=== PATIENT | male | born 1955 | race Hispanic/Latino ===

== ENCOUNTER 2019-02-04 06:44 | Inpatient (IN) | payer OTHER ==
--- NOTE | 2019-02-04 07:01 | Emergency Department Report ---
ED Chest Pain HPI - General Chief Complaint: Chest Pain Stated Complaint: CHEST PAIN Time Seen by Provider: 02/04/19 06:48 Source: patient, EMS Mode of arrival: Stretcher Limitations: No Limitations - History of Present Illness Initial Comments: Mr. Lanza is a 63-year-old male history of tobacco abuse who presents with severe substernal central chest pain in the epigastric region while at work. 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 Pain was initially 8-9/10. [place] like a fist tightening. Radiating to his left arm with. Left arm numbness. EMS observe diaphoresis. He received nitroglycerin, aspirin and 8 mg of morphine due to severe pain. One millimeter of ST elevation noted in the anterior leads according to EMS. His pain is currently 2 out of 10. Mr. Lanza does not have any significant past medical history. He does not have a regular physician. No family history of cardiac disease according to his report. MD Complaint: chest pain -: Sudden, This morning Onset: during rest, during exertion Pain Location: substernal Pain Radiation: LUE Severity: severe Severity scale (0 -10): 9 Quality: tightness Improves With: nitroglycerin, other (aspirin morphine) re: diaphoresis Treatments Prior to Arrival: aspirin, nitroglycerin, other (morphine) - Related Data Allergies Allergy/AdvReac Type Severity Reaction Status Date / Time No Known Allergies Allergy Unverified 02/04/19 07:41 Heart Score - HEART Score History: Highly suspicious EKG: Non-specific Age: > 65 Risk factors: 1-2 risk factors Troponin: < normal limit HEART Score: 6 ED Review of Systems ROS: Stated complaint: CHEST PAIN Other details as noted in HPI Comment: All other systems reviewed and negative Constitutional: denies: fever, malaise Respiratory: denies: cough Cardiovascular: chest pain ED Past Medical Hx - Past Medical History Previous Medical History?: Yes Hx of Cancer: Yes Additional medical history: left chest cancer - Surgical History Past Surgical History?: Yes Additional Surgical History: removal of cancer - Social History Smoking Status: Current Every Day Smoker Substance Use Type: None ED Physical Exam - General Limitations: No Limitations General appearance: alert, in no apparent distress - Head Head exam: Present: atraumatic, normocephalic - Eye Eye exam: Present: normal appearance - ENT ENT exam: Present: mucous membranes moist - Neck Neck exam: Present: normal inspection, full ROM - Respiratory Respiratory exam: Present: normal lung sounds bilaterally. Absent: respiratory distress, wheezes, rales, rhonchi - Cardiovascular Cardiovascular Exam: Present: regular rate, normal rhythm, normal heart sounds. Absent: systolic murmur, diastolic murmur, rubs, gallop - GI/Abdominal GI/Abdominal exam: Present: soft, normal bowel sounds. Absent: distended, tenderness, guarding, rebound - Rectal Rectal exam: Present: deferred - Extremities Exam Extremities exam: Present: normal inspection - Back Exam Back exam: Present: normal inspection - Neurological Exam Neurological exam: Present: alert, oriented X3 - Psychiatric Psychiatric exam: Present: normal affect, normal mood - Skin Skin exam: Present: warm, dry, intact, normal color. Absent: rash ED Course Vital Signs 02/04/19 02/04/19 06:50 07:40 Temperature 98.1 F Pulse Rate 77 71 Respiratory 18 18 Rate Blood Pressure 152/87 Blood Pressure 164/65 [Right] O2 Sat by Pulse 97 100 Oximetry ED Medical Decision Making - Lab Data Result diagrams: 02/04/19 06:58 02/04/19 06:58 Laboratory Results - last 24 hr 02/04/19 02/04/19 06:58 06:58 WBC 13.0 H RBC 5.25 H Hgb 17.5 H Hct 49.9 H MCV 95 H MCH 33 H MCHC 35 H RDW 13.5 Plt Count 228 Lymph % (Auto) 34.6 [place] % (Auto) 8.1 H Eos % (Auto) 1.8 Baso % (Auto) 1.0 Lymph # 4.5 [place] # 1.1 H Eos # 0.2 Baso # 0.1 Seg Neutrophils % 54.5 Seg Neutrophils # 7.1 Sodium 138 Potassium 4.0 Chloride 101.1 Carbon Dioxide 22 Anion Gap 19 BUN 11 Creatinine 1.1 Estimated GFR > 60 BUN/Creatinine Ratio 10 Glucose 234 H Calcium 8.9 Total Bilirubin 0.30 AST 15 ALT 13 Alkaline Phosphatase 108 Troponin T < 0.010 Total Protein 6.9 Albumin 3.8 L Albumin/Globulin Ratio 1.2 - EKG Data 02/04/19 07:06 EKG obtained 648 Normal sinus rhythm rate 75 beats a minute left axis deviation prolonged QT int erval no significant ST elevation nonspecific T wave pattern inferior anterior Q waves abnormal EKG - Radiology Data Radiology results: report reviewed interpreted by me: AP portable chest: Mild pulmonary edema without effusion or other acute finding - Medical Decision Making Mr. Lanza presents with a presentation concerning for acute coronary syndrome. Heart Score 6. He is currently pain free. First troponin is negative. Admitted to the hospital service for further evaluation. Critical care attestation.: If time is entered above; I have spent that time in minutes in the direct care of this critically ill patient, excluding procedure time. ED Disposition Clinical Impression: Acute coronary syndrome Disposition: OP ADMIT IP TO THIS HOSP Is pt being admited?: Yes Does the pt Need Aspirin: No Condition: Stable
--- NOTE | 2019-02-04 07:20 | XRay Report ---
PROCEDURE: XR CHEST 1V AP TECHNIQUE: Chest radiograph single view. HISTORY: dyspnea COMPARISONS: None . FINDINGS: Patient is rotated. No mediastinal shift. Cardiac silhouette is not enlarged for portable technique. Diffuse interstitial prominence. No pneumothorax, effusion, or focal pulmonary opacity identified. N o acute skeletal findings. IMPRESSION: Suggested mild pulmonary edema without effusion or other acute finding. This document is electronically signed by Allan Carrasco MD., February 04 2019 07:17:51 AM ET
[2019-02-04 07:22] LABS: Basophils # (Auto) 0.1 K/mm3 (0.0-0.1); Eosinophils # (Auto) 0.2 K/mm3 (0.0-0.4); Eosinophils % (Auto) 1.8 % (0.0-4.3); Hematocrit 49.9 % (35.5-45.6); Hemoglobin 17.5 gm/dl (11.8-15.2); Lymphocytes # (Auto) 4.5 K/mm3 (1.2-5.4); Lymphocytes % (Auto) 34.6 % (13.4-35.0); Mean Corpuscular HGB Conc 35 % (32-34); Mean Corpuscular Volume 95 fl (84-94); Monocytes # (Auto) 1.1 K/mm3 (0.0-0.8); Monocytes % (Auto) 8.1 % (0.0-7.3); Platelet Count 228 K/mm3 (140-440); Red Blood Count 5.25 M/mm3 (3.65-5.03); Red Cell Distribution Width 13.5 % (13.2-15.2)
[2019-02-04 07:45] LABS: Alanine Aminotransferase 13 units/L (7-56); Albumin 3.8 g/dL (3.9-5); BUN/Creatinine Ratio 10; Blood Urea Nitrogen 11 mg/dL (9-20); Calcium 8.9 mg/dL (8.4-10.2); Hemolysis Index 43
[2019-02-04] MEDS ORDERED: NITRO-BID 2% TP STA (08:20)
[2019-02-04] MEDS ORDERED: MORPHINE IV ONE (08:20)
[2019-02-04] MEDS ORDERED: LOPRESSOR PO ONE (08:20)
[2019-02-04] MEDS ORDERED: TRIDIL DRIP 50MG/250ML 50 MG/250 ML BOTTLE ONE (09:26)
--- NOTE | 2019-02-04 09:26 | History and Physical Report ---
History of Present Illness Date of examination: 02/04/19 Date of admission: 02/04/19 08:17 Chief complaint: chest pain History of present illness: 63yr old male patient with no significant past medical history except for ongoing tobacco use, does not follow any physician not on any medications Presented to the emergency room with the complaints of chest pain which started this morning around 5:00 while getting ready to go to work Chest pain is continuous squeezing to pressure type radiating to left side of the chest and left arm associated with mild shortness of breath and nausea. Upon arrival to the emergency room patient was found to be in hypertensive urgency with peak blood pressure of 181 /109, persistent chest pain , nitroglycerin drip initiated , received bolus of heparin. First set of cardiac enzymes negative EKG no acute ST-T changes, however second EKG findings consistent with ST elevations , cardiology evaluated, anterior STEMI ,code STEMI called and patient was taken for STAT Cardiac Cath Past History Past Medical History: No medical history Past Surgical History: Other (excision of melanoma) Social history: smoking, alcohol abuse Family history: hypertension Medications and Allergies Allergies Allergy/AdvReac Type Severity Reaction Status Date / Time No Known Allergies Allergy Unverified 02/04/19 07:41 Home Medications Medication Instructions Recorded Confirmed Last Taken Type No Known Home Medications [No 02/04/19 02/04/19 Unknown History Reported Home Medications] Active Meds: Active Medications Nitroglycerin/Dextrose (Tridil Drip 50mg/250ml) 50 mg in 250 mls @ 3 mls/hr IV TITR [facility]; Protocol Review of Systems Constitutional: sweats, no weight loss, no weight gain Ears, nose, mouth and throat: no nasal congestion, no nasal discharge Cardiovascular: chest pain, shortness of breath, high blood pressure Respiratory: shortness of breath Gastrointestinal: no abdominal pain, no nausea, no vomiting Genitourinary Male: no dysuria, no flank pain Musculoskeletal: no myalgias, no arthritis Integumentary: no rash, no lesions Neurological: no weakness, no seizures, no syncope Psychiatric: no anxiety, no depression Endocrine: no cold intolerance, no heat intolerance Hematologic/Lymphatic: no easy bruising, no easy bleeding Allergic/Immunologic: no urticaria, no allergic rhinitis Exam - Constitutional Vitals: Temp Pulse Resp BP Pulse Ox 98.1 F 95 H 22 175/108 96 02/04/19 06:50 02/04/19 09:16 02/04/19 09:16 02/04/19 09:16 02/04/19 09:16 General appearance: Present: mild distress - EENT Eyes: Present: PERRL, EOM intact - Neck Neck: Present: supple, normal ROM - Respiratory Respiratory effort: normal Respiratory: bilateral: diminished, negative: rales, rhonchi, wheezing - Cardiovascular Rhythm: regular Heart Sounds: Present: S1 & S2 - Extremities Extremities: no ischemia, No edema - Abdominal General gastrointestinal: Present: soft, non-tender, non-distended, normal bowel sounds - Integumentary Integumentary: Present: clear, warm - Musculoskeletal Musculoskeletal: strength equal bilaterally - Psychiatric Psychiatric: appropriate mood/affect, cooperative - Neurologic Neurologic: CNII-XII intact, moves all extremities Results - Labs CBC & Chem 7: 02/05/19 04:49 02/05/19 04:49 Labs: Abnormal lab results 02/04/19 02/04/19 Range/Units 06:58 06:58 WBC 13.0 H (4.5-11.0) K/mm3 RBC 5.25 H (3.65-5.03) M/mm3 Hgb 17.5 H (11.8-15.2) gm/dl Hct 49.9 H (35.5-45.6) % MCV 95 H (84-94) fl MCH 33 H (28-32) pg MCHC 35 H (32-34) % [place] % (Auto) 8.1 H (0.0-7.3) % [place] # 1.1 H (0.0-0.8) K/mm3 Glucose 234 H (75-100) mg/dL Albumin 3.8 L (3.9-5) g/dL Assessment and Plan --Chest pain; STEMI Aspirin, beta blockers, nitroglycerin drip, Rodriguez inhibitors, statins Serial cardiac enzymes, echocardiogram, EKG as needed Cardiology evaluated the patient, STAT cardiac cath --Hyperglycemia; Accu-Chek sliding scale coverage and ADA diet Check hemoglobin A1c --Ongoing tobacco use; smoking cessation counseling Advised nicotine patch as needed --Obesity; BMI 37.1; advised weight reduction and medically stable --DVT prophylaxis; Lovenox Admit to ICU,Follow cath Closely monitor the patient and adjust management as needed Critical care time 50 minutes
[2019-02-04] MEDS ORDERED: NITROSTAT SL PRN (09:27)
[2019-02-04] MEDS ORDERED: LASIX IV ONE (09:41)
[2019-02-04] MEDS ORDERED: TRIDIL DRIP 50MG/250ML 50 MG/250 ML BOTTLE IV SCH (10:00)
[2019-02-04] MEDS ORDERED: ZESTRIL PO SCH ×2 (10:00→11:41)
[2019-02-04] MEDS ORDERED: COREG PO SCH ×2 (10:00→22:00)
[2019-02-04] MEDS ORDERED: ASPIRIN PO SCH (10:00)
[2019-02-04] MEDS ORDERED: HEPARIN IV NR (10:06)
[2019-02-04] MEDS ORDERED: HEPARIN 10,000 UNITS/10 ML ONE ×2 (10:32→12:00)
[2019-02-04] MEDS ORDERED: HEPARIN/NS 5000 UNIT/500ML(CATH LAB) 1,000 ML IR ONE (10:32)
[2019-02-04] MEDS ORDERED: CALAN ONE (10:33)
[2019-02-04] MEDS ORDERED: NITROGLYCERIN SYRINGE 3 ML ONE (10:33)
[2019-02-04] MEDS ORDERED: ADRENALIN ONE (10:34)
[2019-02-04] MEDS ORDERED: XYLOCAINE CARDIAC IV ONE (10:34)
[2019-02-04] MEDS ORDERED: ATROPINE 0.1% (CARDIAC) ONE (10:34)
[2019-02-04 10:35] LABS: Chol/HDL Ratio 5.51 %
[2019-02-04] MEDS ORDERED: NEO SYNEPHRINE/NS Syringe(OR USE) IV ONE (10:35)
[2019-02-04] MEDS ORDERED: NACL 0.9% 500 ML 500 ML ONE (10:36)
[2019-02-04] MEDS: VERSED ONE ×2 (10:48→10:58)
[2019-02-04] MEDS: SUBLIMAZE ONE ×2 (10:48→10:58)
[2019-02-04] MEDS: XYLOCAINE 2% INFILTRATI ONE ×2 (10:49→10:59)
[2019-02-04] MEDS ORDERED: LASIX ONE (11:05)
[2019-02-04] MEDS ORDERED: PLAVIX ONE (11:18)
[2019-02-04] MEDS ORDERED: ALUM-MAG HYDROX-SIMETH 200-200-20MG/5ML ONE (11:18)
--- NOTE | 2019-02-04 11:57 | Cardiac Catherization Report ---
REFERRING PHYSICIAN: Dr. Manzano, ER physician. INDICATION FOR PROCEDURE: The patient is a 63-year-old gentleman who does not see physicians, smokes, came in with on and off chest pain after 2 negative troponins, was found to have recurrent chest pain, ST elevation on EKG. STEMI protocol initiated, brought to the laborer powerhouse in an urgent fashion, prepped and draped in sterile fashion. Prior to obtaining informed consent, risks, benefits, alternatives discussed at length with the patient. PROCEDURE IN DETAIL: The patient was brought to the laborer powerhouse in an urgent fashion, prepped and draped in sterile fashion. A 6 mL of 2% lidocaine used to anesthetize the right wrist. A standard 6-[place] sheath was used to cannulate the right radial artery using modified Seldinger technique. All exchanges performed to exchange a J-tip guidewire. JL3.5 catheter used to engage the left main. No dampening or vegetations. Cineangiography performed in all projections. JR4 catheter was used to cross the aortic valve. Under fluoroscopic guidance, left ventriculography performed in 30 COOK and 30 [place] projections via hand injections, catheter flushed. Manual pullback performed with continuous pressure monitoring. Catheter used to engage the right coronary. No dampening or ventricularization. Cineangiography performed in all projections. It should be noted the patient is hypertensive crisis on IV nitroglycerin drip, active 10/10 chest pain, hypoxemic on nonrebreather. Pulmonary was called to bedside for close monitoring. He is very uncomfortable and acutely ill. We turned our attention to PCI at this point. DATA: Overall aortic pressure is 160/90, LV pressure is 160, LVP of 35 mmHg. Left ventriculography reveals moderate global left ventricular hypokinesis with anterior hypokinesis, estimated ejection fraction of 35-40%. CORONARY ANATOMY: Right coronary with a chronic total occlusion proximally with well-organized left to right. This is a codominant system. Would recommend medical management. Left main without significant disease, bifurcates left anterior descending and left circumflex. Left circumflex, moderate-sized vessel, courses AV groove, 40-50% proximal left circumflex is identified. 100% occlusion of the LAD proximally angiographic characteristics of atherothrombosis. We turned our attention to PCI at this point, further heparin was given. Abnormal ACT is confirmed. The patient loaded with aspirin. EBU 3.5 guide to engage the left main. No difficulty. We used a King wire to cross the lesion without difficulty, 2.5 x 12 balloon to predilate the lesion. We used two overlapping Xience stents, 3.0 x 26 overlapping 3.0 x 12. We postdilated the overlap. Excellent angiographic result. Intravascular ultrasound was performed reveals a well-apposed and well-expanded stent. Excellent angiographic and ultrasonographic result. No dissection. The stents are well-apposed and well expanded. Proximal ostial LAD and left main without significant disease, ALVARO 3 flow noted now. No complications are identified. CONCLUSIONS: 1. Acute atherothrombotic occlusion of the proximal LAD in the milieu of an anterior ST elevation myocardial infarction. 2. Successful IVUS guided PCI placement of overlapping drug-eluting stents (3.0 x 26, 3.0 x 12 Ne[place]ali) with excellent final angiographic and ultrasonographic results. 3. A 40-50% proximal left circumflex. 4. Chronic total occlusion of a small codominant right coronary. Recommend medical management. 5. Left ventriculography reveals anterior dyskinesis with estimated ejection fraction of 35-40%. 6. No evidence of aortic stenosis. 7. Markedly elevated LVP. 8. Elevated blood pressure. The patient is clinically markedly improved. O2 sats improved. Chest pain is resolved. ACT is confirmed to be normal. Aspirin and Plavix loaded. Standard radial care. We will watch his blood pressure closely. He will be admitted to the ICU. Check echocardiogram, diuresis. Results of procedure explained in length to the patient and family. All questions and concerns were addressed. ADDENDUM I directly supervised administration of mild sedation with fentanyl and Versed from 10:48 a.m. to 11:30 a.m. JOB#: [id number] JOB# [id number] SBM/NTS
--- NOTE | 2019-02-04 13:25 | Consultation ---
History of Present Illness Consult date: 02/04/19 Requesting physician: MIRACLE HILL Consult reason: chest pain History of present illness: The pt is a 63 YO male with a past medical history of tobacco use and melanoma skin CA to left-chest which was removed. Pt does not regularly see doctors. Pt presented with c/o chest pain since 5AM this morning. He was walking around his house getting ready for work when he noted the onset of the chest pain. He describes his chest pain as a constant midsternal squeezing pain. He was driving to work when he noted the pain move into his left chest and he developed some left arm numbness and SOB and thus he decided to seek medical attention. Following arrival, pt noted to have hypertensive urgency, pulmonary edema on CXR, S3 gallop on evaluation, c/o 8/10 chest pain and was initiated on nitro gtt. Initial ECG with NSR and no acute changes, trop negative for AMI x 1 set, however repeat ECG showed NSR with anterior STEMI and thus code STEMI was activated and pt taken to biological lab technician for emergent coronary angiography. Past History Past Medical History: No medical history Past Surgical History: No surgical history Social history: smoking Medications and Allergies Allergies Allergy/AdvReac Type Severity Reaction Status Date / Time No Known Allergies Allergy Unverified 02/04/19 07:41 Home Medications Medication Instructions Recorded Confirmed Last Taken Type No Known Home Medications [No 02/04/19 02/04/19 Unknown History Reported Home Medications] Active Meds: Active Medications Aspirin (Ecotrin) 325 mg PO QDAY [facility] Atorvastatin Calcium (Lipitor) 80 mg PO QHS [facility] Carvedilol (Coreg) 6.25 mg PO BID [facility] Clopidogrel Bisulfate (Plavix) 75 mg PO QDAY [facility] Nitroglycerin/Dextrose (Tridil Drip 50mg/250ml) 50 mg in 250 mls @ 3 mls/hr IV TITR [facility]; Protocol Last Titration: 02/04/19 09:56 Dose: 3 mcg/min, 0.9 mls/hr Documented by: Insulin Human Lispro (Humalog) 0 unit SUB-Q ACHS [facility]; Protocol Lisinopril (Zestril) 10 mg PO QDAY [facility] Nicotine (Habitrol) 14 mg TD QDAY [facility] Nitroglycerin (Nitrostat) 0.4 mg SL .Q5MIN PRN PRN Reason: Chest Pain Review of Systems Constitutional: no weight loss, no weight gain, no fever, no chills, no sweats Ears, nose, mouth and throat: no ear pain, no nose pain, no sinus pressure, no sinus pain Cardiovascular: chest pain, shortness of breath, no orthopnea, no palpitations, no rapid/irregular heart beat, no edema, no syncope, no lightheadedness Respiratory: shortness of breath, wheezing, no cough, no congestion, no pain on inspiration Gastrointestinal: no abdominal pain, no nausea, no vomiting, no diarrhea, no constipation, no change in bowel habits Genitourinary Male: no dysuria, no hematuria, no flank pain, no discharge, no urinary frequency, no urinary hesitancy Musculoskeletal: arm numbness/tingling (LUE), no neck stiffness, no neck pain, no shooting arm pain, no low back pain, no shooting leg pain Integumentary: no rash, no pruritis, no redness, no sores, no wounds Neurological: no head injury, no paralysis, no weakness, no parathesias, no tingling, no seizures, no syncope Psychiatric: no anxiety Endocrine: no cold intolerance, no heat intolerance Hematologic/Lymphatic: no easy bruising, no easy bleeding Allergic/Immunologic: no urticaria, no wheezing Physical Examination Vital Signs Pulse 79 02/04/19 06:46 General appearance: no acute distress (c/o cp) HEENT: Positive: PERRL, Normocephaly, Mucus Membranes Moist Neck: Positive: neck supple, trachea midline Cardiac: Positive: Regular Rhythm, S1/S2, S3 Lungs: Positive: Rales, Wheezes Neuro: Positive: Grossly Intact Abdomen: Negative: Tender Skin: Negative: Rash, Wound Musculoskeletal: No Pain Extremities: Absent: edema Results 02/04/19 06:58 02/04/19 06:58 Cardiac Enzymes 02/04/19 Range/Units 06:58 AST 15 (5-40) units/L Lipids 02/04/19 Range/Units 06:58 Triglycerides 168 H (2-149) mg/dL Cholesterol 193 (50-199) mg/dL HDL Cholesterol 35 L (40-59) mg/dL Cholesterol/HDL Ratio 5.51 % CBC 02/04/19 Range/Units 06:58 WBC 13.0 H (4.5-11.0) K/mm3 RBC 5.25 H (3.65-5.03) M/mm3 Hgb 17.5 H (11.8-15.2) gm/dl Hct 49.9 H (35.5-45.6) % Plt Count 228 (140-440) K/mm3 Lymph # 4.5 (1.2-5.4) K/mm3 [place] # 1.1 H (0.0-0.8) K/mm3 Eos # 0.2 (0.0-0.4) K/mm3 Baso # 0.1 (0.0-0.1) K/mm3 Comprehensive Metabolic Panel 02/04/19 Range/Units 06:58 Sodium 138 (137-145) mmol/L Potassium 4.0 (3.6-5.0) mmol/L Chloride 101.1 (98-107) mmol/L Carbon Dioxide 22 (22-30) mmol/L BUN 11 (9-20) mg/dL Creatinine 1.1 (0.8-1.5) mg/dL Glucose 234 H (75-100) mg/dL Calcium 8.9 (8.4-10.2) mg/dL AST 15 (5-40) units/L ALT 13 (7-56) units/L Alkaline Phosphatase 108 (35-129) units/L Total Protein 6.9 (6.3-8.2) g/dL Albumin 3.8 L (3.9-5) g/dL - Imaging and Cardiology Echo: pending Cardiac cath: report reviewed EKG: report reviewed, image reviewed EKG interpretations - Telemetry EKG Rhythm: Sinus Rhythm - EKG Sinus rhythms and dysrhythmias: sinus rhythm Myocardial infarction: anterior [place] (acute or rec Assessment and Plan S/p LHC with PCI to LAD today. Tx to CCU. Cont with standard radial access post- PCI care. Initiated on ASA, plavix, statin, coreg, lisinopril. Diuresis with IV lasix. Obtain echo. Further recs to follow per hospital course. The patient has been seen in conjunction with Dr. Martin Figueroa who agrees with the assessment and plan of care. - Patient Problems (1) STEMI (ST elevation myocardial infarction) Current Visit: Yes Status: Acute (2) CAD (coronary artery disease) Current Visit: Yes Status: Chronic (3) Stented coronary artery Current Visit: Yes Status: Chronic (4) Hypertensive urgency Current Visit: Yes Status: Acute (5) Acute HFrEF (heart failure with reduced ejection fraction) Current Visit: Yes Status: Acute (6) Hyperglycemia Current Visit: Yes Status: Acute (7) Dyslipidemia Current Visit: Yes Status: Chronic (8) Tobacco use Current Visit: Yes Status: Chronic
[2019-02-04] MEDS: HumaLOG SUB-Q SCH ×3 (14:54→22:20)
[2019-02-04] MEDS ORDERED: HumaLOG SUB-Q ONE (14:54)
--- NOTE | 2019-02-04 18:47 | Event Note ---
Date: 02/04/19 Patient underwent stat left heart catheterization S/p LHC with PCI to LAD today. Tx to CCU. Cont with standard radial access post- PCI care. Initiated on ASA, plavix, statin, coreg, lisinopril. Diuresis with IV lasix. Follow echocardiogram , cardiology recommendations noted Monitor the patient closely and adjust management as needed Smoking cessation counseling, nicotine patch as needed Plan of care is reviewed with the patient in cath recovery room, and his nurse
[2019-02-04] MEDS: LASIX IV SCH (20:55)
[2019-02-04] MEDS ORDERED: LOVENOX SUB-Q SCH (22:00)
[2019-02-04] MEDS: COREG PO SCH (22:19)
[2019-02-04] MEDS ORDERED: ZOFRAN IV PRN (23:30)
[2019-02-04] MEDS ORDERED: MORPHINE IV PRN (23:30)
[2019-02-04] MEDS ORDERED: TYLENOL PO PRN (23:31)
--- NOTE | 2019-02-05 02:46 | XRay Report ---
PROCEDURE: XR CHEST 1V AP TECHNIQUE: Chest radiograph single view. HISTORY: post pci COMPARISONS: 02/04/2019 . FINDINGS: Heart: Normal. Mediastinum/Vessels: Normal. Lungs/Pleural space: There are no infiltrates or effusions.. Bony thorax: No acute osseous abnormality. Life support devices: None. IMPRESSION: No acute cardiopulmonary abnormality. This document is electronically signed by Jose Luis Szymanski MD., February 05 2019 02:44:37 AM ET
[2019-02-05 05:47] LABS: Basophils # (Auto) 0.1 K/mm3 (0.0-0.1); Basophils % (Auto) 0.4 % (0.0-1.8); Eosinophils % (Auto) 0.3 % (0.0-4.3); Hematocrit 51.1 % (35.5-45.6); Hemoglobin 17.6 gm/dl (11.8-15.2); Lymphocytes # (Auto) 2.6 K/mm3 (1.2-5.4); Lymphocytes % (Auto) 20.7 % (13.4-35.0); Mean Corpuscular HGB Conc 35 % (32-34); Mean Corpuscular Volume 96 fl (84-94); Monocytes # (Auto) 1.1 K/mm3 (0.0-0.8); Monocytes % (Auto) 8.6 % (0.0-7.3); Platelet Count 205 K/mm3 (140-440); Red Blood Count 5.34 M/mm3 (3.65-5.03); Red Cell Distribution Width 13.8 % (13.2-15.2)
[2019-02-05 06:04] LABS: Calcium 9.5 mg/dL (8.4-10.2)
[2019-02-05] MEDS: LASIX IV SCH (06:07)
[2019-02-05] MEDS: HumaLOG SUB-Q SCH ×3 (08:12→17:21)
[2019-02-05] MEDS: ECOTRIN PO SCH (09:43)
[2019-02-05] MEDS: PLAVIX PO SCH (09:43)
[2019-02-05] MEDS: HABITROL TD SCH (09:44)
[2019-02-05] MEDS: COREG PO SCH ×2 (09:48→21:44)
[2019-02-05] MEDS: ZESTRIL PO SCH (09:48)
--- NOTE | 2019-02-05 10:00 | Progress Note ---
Assessment and Plan Assessment and plan: --Chest pain; STEMI S/p C with PCI to LAD Cont ASA, plavix, statin, coreg, lisinopril. diuretics Cardiology following --Ischemic cardiomyopathy; ejection fraction 35% Diuretics, beta blockers, his inhibitors, low sodium diet, fluid restriction --Rhabdomyolysis; CK levels trending down, gentle hydration Monitor renal function --Hyperglycemia; Accu-Chek sliding scale coverage and ADA diet hemoglobin A1c 6.9 --Ongoing tobacco use; smoking cessation counseling Advised nicotine patch as needed --Obesity; BMI 37.1; advised weight reduction and medically stable --DVT prophylaxis; Lovenox Closely monitor the patient and adjust management as needed Patient can be transferred out of ICU to telemetry Possible discharge home in 1-2 days if stable Critical care time 35 minutes History Interval history: Patient seen and examined this morning in ICU medical records reviewed Patient feels better no new complaints Denies chest pain or shortness of breath Alert awake oriented 3 Vital signs noted Hospitalist Physical - Constitutional Vitals: Temp Pulse Resp BP Pulse Ox 97.5 F L 89 12 157/90 96 02/05/19 08:00 02/05/19 09:48 02/05/19 08:20 02/05/19 09:48 02/05/19 08:20 General appearance: Present: no acute distress, well-nourished, obese - EENT Eyes: Present: PERRL, EOM intact - Neck Neck: Present: supple, normal ROM - Respiratory Respiratory effort: normal Respiratory: bilateral: diminished, negative: rales, rhonchi, wheezing - Cardiovascular Rhythm: regular Heart Sounds: Present: S1 & S2 - Extremities Extremities: no ischemia, No edema - Abdominal General gastrointestinal: soft, non-tender, non-distended, normal bowel sounds - Integumentary Integumentary: Present: clear, warm - Psychiatric Psychiatric: appropriate mood/affect, cooperative - Neurologic Neurologic: CNII-XII intact, moves all extremities Results - Labs CBC & Chem 7: 02/05/19 04:49 02/05/19 04:49 Labs: Laboratory Last Values WBC 12.4 K/mm3 (4.5-11.0) H 02/05/19 04:49 RBC 5.34 M/mm3 (3.65-5.03) H 02/05/19 04:49 Hgb 17.6 gm/dl (11.8-15.2) H 02/05/19 04:49 Hct 51.1 % (35.5-45.6) H 02/05/19 04:49 MCV 96 fl (84-94) H 02/05/19 04:49 MCH 33 pg (28-32) H 02/05/19 04:49 MCHC 35 % (32-34) H 02/05/19 04:49 RDW 13.8 % (13.2-15.2) 02/05/19 04:49 Plt Count 205 K/mm3 (140-440) 02/05/19 04:49 Lymph % (Auto) 20.7 % (13.4-35.0) 02/05/19 04:49 [place] % (Auto) 8.6 % (0.0-7.3) H 02/05/19 04:49 Eos % (Auto) 0.3 % (0.0-4.3) 02/05/19 04:49 Baso % (Auto) 0.4 % (0.0-1.8) 02/05/19 04:49 Lymph # 2.6 K/mm3 (1.2-5.4) 02/05/19 04:49 [place] # 1.1 K/mm3 (0.0-0.8) H 02/05/19 04:49 Eos # 0.0 K/mm3 (0.0-0.4) 02/05/19 04:49 Baso # 0.1 K/mm3 (0.0-0.1) 02/05/19 04:49 Seg Neutrophils % 70.0 % (40.0-70.0) 02/05/19 04:49 Seg Neutrophils # 8.7 K/mm3 (1.8-7.7) H 02/05/19 04:49 Sodium 136 mmol/L (137-145) L 02/05/19 04:49 Potassium 4.1 mmol/L (3.6-5.0) 02/05/19 04:49 Chloride 93.3 mmol/L (98-107) L 02/05/19 04:49 Carbon Dioxide 30 mmol/L (22-30) D 02/05/19 04:49 17 mmol/L 02/05/19 04:49 BUN 17 mg/dL (9-20) 02/05/19 04:49 1.3 mg/dL (0.8-1.5) 02/05/19 04:49 Estimated GFR 56 ml/min 02/05/19 04:49 13 % 02/05/19 04:49 Glucose 158 mg/dL (75-100) H 02/05/19 04:49 POC Glucose 151 (70-105) H 02/05/19 08:14 6.9 % (4-6) H 02/04/19 06:58 Calcium 9.5 mg/dL (8.4-10.2) 02/05/19 04:49 0.30 mg/dL (0.1-1.2) 02/04/19 06:58 AST 15 units/L (5-40) 02/04/19 06:58 ALT 13 units/L (7-56) 02/04/19 06:58 108 units/L (35-129) 02/04/19 06:58 1899 units/L (55-170) H 02/05/19 04:49 CK-MB (CK-2) 221.0 ng/mL (0.0-4.0) H 02/05/19 04:49 CK-MB (CK-2) Rel Index 11.6 (0-4) H 02/05/19 04:49 4.890 ng/mL (0.00-0.029) H* D 02/05/19 04:49 NT-Pro-B Natriuret Pep 60.16 pg/mL (0-900) 02/04/19 06:58 6.9 g/dL (6.3-8.2) 02/04/19 06:58 3.8 g/dL (3.9-5) L 02/04/19 06:58 1.2 % 02/04/19 06:58 Triglycerides 168 mg/dL (2-149) H 02/04/19 06:58 Cholesterol 193 mg/dL (50-199) 02/04/19 06:58 144 mg/dL (50-130) H 02/04/19 06:58 35 mg/dL (40-59) L 02/04/19 06:58 5.51 % 02/04/19 06:58 Active Medications - Current Medications Current Medications: Generic Name Dose Route Start Last Admin Trade Name Divya PRN Reason Stop Dose Admin Acetaminophen 650 mg 02/04/19 23:31 Tylenol PO Q4H PRN Pain, Mild (1-3) Aspirin 325 mg 02/05/19 10:00 02/05/19 09:43 Ecotrin PO 325 mg QDAY [facility] Administration Atorvastatin Calcium 80 mg 02/04/19 22:00 02/04/19 22:18 Lipitor PO 80 mg QHS RAE Administration Carvedilol 6.25 mg 02/04/19 22:00 02/05/19 09:48 Coreg PO 6.25 mg BID RAE Administration Clopidogrel Bisulfate 75 mg 02/05/19 10:00 02/05/19 09:43 Plavix PO 75 mg QDAY [facility] Administration Furosemide 40 mg 02/04/19 18:00 02/05/19 06:07 Lasix IV 40 mg 0600,1800 [facility] Administration Nitroglycerin/Dextrose 50 mg in 250 mls @ 3 mls/hr 02/04/19 10:00 02/04/19 0 9:56 Tridil Drip 50mg/250ml IV 3 mcg/min TITR RAE 0.9 mls/hr Titration Protocol 10 MCG/MIN Insulin Human Lispro 0 unit 02/04/19 11:30 02/05/19 08:12 Humalog SUB-Q 2 unit ACHS RAE Administration Protocol Lisinopril 10 mg 02/05/19 10:00 02/05/19 09:48 Zestril PO 10 mg QDAY RAE Administration Morphine Sulfate 2 mg 02/04/19 23:30 Morphine IV Q3H PRN Pain, Moderate (4-6) Nicotine 14 mg 02/04/19 10:00 02/05/19 09:44 Habitrol TD 14 mg QDAY [facility] Administration Nitroglycerin 0.4 mg 02/04/19 09:27 Nitrostat SL .Q5MIN PRN Chest Pain Ondansetron HCl 4 mg 02/04/19 23:30 02/04/19 23:50 Zofran IV 4 mg Q8H PRN Administration Nausea And Vomiting
--- NOTE | 2019-02-05 10:08 | Progress Note ---
Assessment and Plan 63yo WM: 1. Acute acute anterior STEMI * s/p primary lad pci 2. Hyperglycemia 3. htn 4. obesity 5. Probable reji 6. tobacco abuse Plan: d/c iv lasix - change to po cont asa/plavix/statin/bb/anurag f/u tte diet and lifestyle modification discussed smoking cessation at length ok to transfer to [facility] Subjective Date of service: 02/05/19 Interval history: no complaints no cp/sob - feels better Objective Vital Signs Temp Pulse Pulse Resp BP BP Pulse Ox 02/05/19 09:48 88 157/90 02/05/19 08:20 83 12 137/84 96 02/05/19 08:10 84 13 137/84 96 02/05/19 08:00 97.5 F L 77 77 13 137/84 96 02/05/19 07:50 77 12 128/78 96 02/05/19 07:40 79 14 128/78 97 02/05/19 07:30 84 18 128/78 96 02/05/19 07:20 87 20 128/78 96 02/05/19 07:10 76 13 128/78 96 02/05/19 07:00 77 22 128/78 97 02/05/19 06:50 84 15 132/85 97 02/05/19 06:40 81 18 132/85 97 02/05/19 06:30 75 15 132/85 97 02/05/19 06:20 80 17 132/85 96 02/05/19 06:10 80 13 132/85 97 02/05/19 06:00 76 13 132/85 97 02/05/19 05:50 78 18 132/82 91 02/05/19 05:40 74 14 132/82 96 02/05/19 05:30 77 15 132/82 97 02/05/19 05:20 77 13 132/82 95 02/05/19 05:10 70 13 132/82 96 02/05/19 05:00 73 14 132/82 96 02/05/19 04:50 75 13 129/85 97 02/05/19 04:40 75 25 H 129/85 94 02/05/19 04:30 81 17 129/85 93 02/05/19 04:20 72 14 129/85 98 02/05/19 04:10 78 17 129/85 97 02/05/19 04:00 98.2 F 72 16 129/85 97 02/05/19 03:50 76 22 127/79 96 02/05/19 03:40 76 20 127/79 95 02/05/19 03:30 82 21 127/79 93 02/05/19 03:20 78 19 127/79 95 02/05/19 03:10 74 22 127/79 96 02/05/19 03:00 73 18 127/79 95 02/05/19 02:50 79 11 L 123/75 95 02/05/19 02:40 80 19 123/75 94 02/05/19 02:30 79 21 123/75 95 02/05/19 02:20 79 22 123/75 95 02/05/19 02:10 82 19 123/75 93 02/05/19 02:00 77 10 L 123/75 96 02/05/19 01:50 78 9 L 127/74 94 02/05/19 01:40 97 H 20 127/74 95 02/05/19 01:30 82 15 127/74 93 02/05/19 01:20 81 22 127/74 94 02/05/19 01:10 80 24 127/74 94 02/05/19 01:00 78 16 127/74 93 02/05/19 00:50 82 21 124/80 94 02/05/19 00:40 82 20 124/80 93 02/05/19 00:30 81 16 124/80 93 02/05/19 00:20 81 12 124/80 93 02/05/19 00:10 80 18 124/80 93 02/05/19 00:00 98.0 F 78 15 124/80 95 02/04/19 23:50 81 17 136/79 96 19 23:40 87 19 136/79 94 19 23:30 85 10 L 136/79 94 19 23:20 97 H 14 136/79 97 18/19 23:10 80 11 L 136/79 97 19 23:00 77 15 136/79 97 19 22:50 80 23 129/76 96 19 22:40 78 19 129/76 97 19 22:30 94 H 18 129/76 02/04/19 22:20 84 7 L 129/76 94 06/18/19 22:19 86 129/76 18 22:10 78 11 L 129/76 96 1819 22:00 76 13 129/76 96 18/19 21:50 86 16 138/89 97 18/19 21:40 90 21 138/89 96 1819 21:30 81 12 138/89 96 18/19 21:20 80 21 138/89 95 1819 21:10 99 H 14 138/89 97 1819 21:00 83 12 138/89 97 1819 20:50 80 21 141/89 98 1819 20:40 80 16 141/88 97 18 20:30 86 11 L 141/88 97 02/04/19 20:20 78 18 141/88 92 02/04/19 20:10 74 13 123/86 92 19 20:00 98.6 F 90 18 123/86 98 19 19:52 98.6 F 19 19:50 77 20 125/78 96 1819 19:40 84 14 129/88 97 18/19 19:30 84 11 L 129/88 95 02/04/19 19:20 80 20 121/80 92 18/19 19:10 89 17 121/82 95 18/19 19:00 82 18 121/82 97 18/19 18:50 83 22 127/81 96 18/19 18:40 84 23 142/97 96 1819 18:30 142/73 97 18/19 18:26 89 17 100 18/19 17:45 94 H 18/19 17:30 84 20 149/92 94 18/19 17:00 97 H 22 145/96 95 18/19 16:30 85 13 142/87 97 18/19 16:00 84 17 130/87 95 18/19 15:30 87 15 118/74 94 18/19 15:00 89 21 122/81 96 18/19 14:30 90 15 135/90 98 18/19 14:12 19 98 18/19 14:00 87 21 129/81 90 06/18/19 13:45 93 H 18 124/84 99 02/04/19 13:30 96 H 17 131/79 99 02/04/19 13:15 92 H 12 121/76 99 02/04/19 13:00 95 H 14 135/68 99 02/04/19 12:45 92 H 13 135/94 99 02/04/19 12:30 94 H 16 135/82 99 02/04/19 12:15 96 H 14 130/78 98 02/04/19 12:00 96.9 F L 96 H 14 145/94 98 02/04/19 10:30 99 H 25 H 169/102 02/04/19 10:20 98 H 15 159/104 94 02/04/19 10:15 100 H 17 169/100 100 02/04/19 10:10 99 H 23 160/103 91 - Physical Examination HEENT: Positive: PERRL, Normocephaly, Mucus Membranes Moist Neck: Positive: neck supple, trachea midline Neuro: Positive: Grossly Intact Abdomen: Negative: Tender Skin: Negative: Rash, Wound Musculoskeletal: No Pain Extremities: Absent: edema - Labs and Meds Cardiac Enzymes 02/04/19 02/05/19 Range/Units 20:29 04:49 CK-MB (CK-2) 432.0 H 221.0 H (0.0-4.0) ng/mL Lipids 02/04/19 Range/Units 06:58 Triglycerides 168 H (2-149) mg/dL Cholesterol 193 (50-199) mg/dL HDL Cholesterol 35 L (40-59) mg/dL Cholesterol/HDL Ratio 5.51 % CBC 02/05/19 Range/Units 04:49 WBC 12.4 H (4.5-11.0) K/mm3 RBC 5.34 H (3.65-5.03) M/mm3 Hgb 17.6 H (11.8-15.2) gm/dl Hct 51.1 H (35.5-45.6) % Plt Count 205 (140-440) K/mm3 Lymph # 2.6 (1.2-5.4) K/mm3 [place] # 1.1 H (0.0-0.8) K/mm3 Eos # 0.0 (0.0-0.4) K/mm3 Baso # 0.1 (0.0-0.1) K/mm3 Comprehensive Metabolic Panel 02/05/19 Range/Units 04:49 Sodium 136 L (137-145) mmol/L Potassium 4.1 (3.6-5.0) mmol/L Chloride 93.3 L (98-107) mmol/L Carbon Dioxide 30 D (22-30) mmol/L BUN 17 (9-20) mg/dL Creatinine 1.3 (0.8-1.5) mg/dL Glucose 158 H (75-100) mg/dL Calcium 9.5 (8.4-10.2) mg/dL - Imaging and Cardiology EKG: report reviewed, image reviewed Echo: pending Cardiac cath: report reviewed - EKG Sinus rhythms and dysrhythmias: sinus rhythm Myocardial infarction: anterior [place] (acute or rec
[2019-02-05 10:13] LABS: Bilirubin,Urine NEG (Negative); Blood,Urine NEG (Negative); Color,Urine Straw (Yellow); Mucus,Urine FEW /HPF; Protein,Urine <15 mg/dL mg/dL (Negative); Urobilinogen,Urine < 2.0 mg/dL (<2.0); WBC,Urine < 1.0 /HPF (0.0-6.0)
[2019-02-05 10:35] LABS: Amphetamine Screen,Urine PRESUMPTIVE NEGATIVE; Benzodiazepines Screen,Urine PRESUMPTIVE NEGATIVE; Cannabinoid Screen,Urine PRESUMPTIVE NEGATIVE; Cocaine Screen,Urine PRESUMPTIVE NEGATIVE; Methadone Screen,Urine PRESUMPTIVE NEGATIVE; Opiate Screen,Urine PRESUMPTIVE NEGATIVE
--- NOTE | 2019-02-05 11:01 | Consultation ---
History of Present Illness - Reason for Consult Consult date: 02/05/19 STEMI s/p PCI Requesting physician: TJ CALLAWAY - History of Present Illness 63 y/o male admitted with STEMI, s/p PCI to proximal LAD. Chest pain free now. No acute events overnight. Was given lasix yesterday now switched to PO lasix today. No other acute events. Past History Past Medical History: No medical history Past Surgical History: Other (excision of melanoma) Social history: smoking, alcohol abuse Family history: hypertension Medications and Allergies Allergies Allergy/AdvReac Type Severity Reaction Status Date / Time No Known Allergies Allergy Unverified 02/04/19 07:41 Home Medications Medication Instructions Recorded Confirmed Last Taken Type No Known Home Medications [No 02/04/19 02/04/19 Unknown History Reported Home Medications] Active Meds: Active Medications Acetaminophen (Tylenol) 650 mg PO Q4H PRN PRN Reason: Pain, Mild (1-3) Aspirin (Ecotrin) 325 mg PO QDAY [facility] Last Admin: 02/05/19 09:43 Dose: 325 mg Documented by: Atorvastatin Calcium (Lipitor) 80 mg PO QHS [facility] Last Admin: 02/04/19 22:18 Dose: 80 mg Documented by: Carvedilol (Coreg) 6.25 mg PO BID [facility] Last Admin: 02/05/19 09:48 Dose: 6.25 mg Documented by: Clopidogrel Bisulfate (Plavix) 75 mg PO QDAY [facility] Last Admin: 02/05/19 09:43 Dose: 75 mg Documented by: Enoxaparin Sodium (Lovenox) 40 mg SUB-Q QDAY@2200 RAE Furosemide (Lasix) 40 mg PO QDAY [facility] Nitroglycerin/Dextrose (Tridil Drip 50mg/250ml) 50 mg in 250 mls @ 3 mls/hr IV TITR [facility]; Protocol Last Titration: 02/04/19 09:56 Dose: 3 mcg/min, 0.9 mls/hr Documented by: Insulin Human Lispro (Humalog) 0 unit SUB-Q ACHS [facility]; Protocol Last Admin: 02/05/19 08:12 Dose: 2 unit Documented by: Lisinopril (Zestril) 10 mg PO QDAY [facility] Last Admin: 02/05/19 09:48 Dose: 10 mg Documented by: Morphine Sulfate (Morphine) 2 mg IV Q3H PRN PRN Reason: Pain, Moderate (4-6) Nicotine (Habitrol) 14 mg TD QDAY [facility] Last Admin: 02/05/19 09:44 Dose: 14 mg Documented by: Nitroglycerin (Nitrostat) 0.4 mg SL .Q5MIN PRN PRN Reason: Chest Pain Ondansetron HCl (Zofran) 4 mg IV Q8H PRN PRN Reason: Nausea And Vomiting Last Admin: 02/04/19 23:50 Dose: 4 mg Documented by: Review of Systems All systems: negative Exam - Constitutional Vitals: Temp Pulse Resp BP Pulse Ox 97.5 F L 89 12 157/90 96 02/05/19 08:00 02/05/19 09:48 02/05/19 08:20 02/05/19 09:48 02/05/19 08:20 General appearance: Present: no acute distress, well-nourished, obese - EENT Eyes: Present: PERRL, EOM intact ENT: hearing intact - Neck Neck: Present: supple, normal ROM - Respiratory Respiratory effort: normal Respiratory: bilateral: CTA - Cardiovascular Rhythm: regular Heart Sounds: Present: S1 & S2 - Extremities Extremities: no ischemia, pulses intact - Abdominal General gastrointestinal: Present: soft, non-tender - Integumentary Integumentary: Present: clear, warm, dry - Musculoskeletal Musculoskeletal: strength equal bilaterally - Psychiatric Psychiatric: appropriate mood/affect - Neurologic Neurologic: CNII-XII intact Results - Labs CBC & Chem 7: 02/05/19 04:49 02/05/19 04:49 Labs: Abnormal lab results 02/04/19 02/04/19 02/04/19 Range/Units 06:58 20:29 21:04 WBC (4.5-11.0) K/mm3 RBC (3.65-5.03) M/mm3 Hgb (11.8-15.2) gm/dl Hct (35.5-45.6) % MCV (84-94) fl MCH (28-32) pg MCHC (32-34) % [place] % (Auto) (0.0-7.3) % [place] # (0.0-0.8) K/mm3 Seg Neutrophils # (1.8-7.7) K/mm3 Sodium (137-145) mmol/L Chloride (98-107) mmol/L Glucose (75-100) mg/dL POC Glucose 125 H (70-105) Hemoglobin A1c 6.9 H (4-6) % Total Creatine Kinase 3553 H (55-170) units/L CK-MB (CK-2) 432.0 H (0.0-4.0) ng/mL CK-MB (CK-2) Rel Index 12.1 H (0-4) Troponin T (0.00-0.029) ng/mL 02/05/19 02/05/19 02/05/19 Range/Units 04:49 04:49 08:14 WBC 12.4 H (4.5-11.0) K/mm3 RBC 5.34 H (3.65-5.03) M/mm3 Hgb 17.6 H (11.8-15.2) gm/dl Hct 51.1 H (35.5-45.6) % MCV 96 H (84-94) fl MCH 33 H (28-32) pg MCHC 35 H (32-34) % [place] % (Auto) 8.6 H (0.0-7.3) % [place] # 1.1 H (0.0-0.8) K/mm3 Seg Neutrophils # 8.7 H (1.8-7.7) K/mm3 Sodium 136 L (137-145) mmol/L Chloride 93.3 L (98-107) mmol/L Glucose 158 H (75-100) mg/dL POC Glucose 151 H (70-105) Hemoglobin A1c (4-6) % Total Creatine Kinase 1899 H (55-170) units/L CK-MB (CK-2) 221.0 H (0.0-4.0) ng/mL CK-MB (CK-2) Rel Index 11.6 H (0-4) Troponin T 4.890 H* D (0.00-0.029) ng/mL - Imaging and Cardiology Chest x-ray: image reviewed (cardiomegaly and mild vascular congestion) Assessment and Plan 63 y/o male status post STEMI with Stent to PROX LAD 1. Reviewed cards note 2. Meds adjusted 3. Transfer to Tele
[2019-02-05] MEDS ORDERED: LOVENOX SUB-Q SCH (22:00)
[2019-02-06] MEDS: HumaLOG SUB-Q SCH ×3 (07:06→12:33)
[2019-02-06] MEDS ORDERED: GLUCOTROL PO SCH (08:00)
[2019-02-06] MEDS ORDERED: LASIX PO SCH (10:00)
[2019-02-06] MEDS: ZESTRIL PO SCH (10:02)
[2019-02-06] MEDS: ECOTRIN PO SCH (10:02)
[2019-02-06] MEDS: PLAVIX PO SCH (10:02)
[2019-02-06] MEDS: HABITROL TD SCH ×2 (10:02→10:03)
[2019-02-06] MEDS: COREG PO SCH (10:02)
--- NOTE | 2019-02-06 10:04 | Progress Note ---
Assessment and Plan Echo reviewed - EF 35-40%, impaired relaxation, mid anterior and apical anterior wall segments hypokinetic. Currently stable cardiac status. Pt may discharge home from cardiology standpoint on current cardiac regimen. Follow up in our [place] office with Dr. Martin Figueroa on 02/13/2019 @ 1:00PM. The patient has been seen in conjunction with Dr. Martin Figueroa who agrees with the assessment and plan of care. - Patient Problems (1) STEMI (ST elevation myocardial infarction) Current Visit: Yes Status: Acute (2) CAD (coronary artery disease) Current Visit: Yes Status: Chronic (3) Stented coronary artery Current Visit: Yes Status: Chronic (4) Hypertensive urgency Current Visit: Yes Status: Acute (5) Acute HFrEF (heart failure with reduced ejection fraction) Current Visit: Yes Status: Acute (6) Hyperglycemia Current Visit: Yes Status: Acute (7) Dyslipidemia Current Visit: Yes Status: Chronic (8) Tobacco use Current Visit: Yes Status: Chronic (9) Cardiomyopathy Current Visit: Yes Status: Chronic Subjective Date of service: 02/06/19 Principal diagnosis: STEMI Interval history: pt resting comfortably in bed, no current complaints. Objective Last Vital Signs Temp 98.8 F 02/06/19 07:30 Pulse 67 02/06/19 07:30 Resp 18 02/06/19 07:30 BP 103/55 02/06/19 07:30 Pulse Ox 94 02/06/19 07:30 - Physical Examination General: No Apparent Distress HEENT: Positive: PERRL, Normocephaly, Mucus Membranes Moist Neck: Positive: neck supple, trachea midline Cardiac: Positive: Reg Rate and Rhythm, S1/S2 Lungs: Positive: Decreased Breath Sounds Neuro: Positive: Grossly Intact Abdomen: Negative: Tender Skin: Negative: Rash, Wound Musculoskeletal: No Pain Extremities: Absent: edema - Imaging and Cardiology EKG: report reviewed, image reviewed Echo: pending Cardiac cath: report reviewed - EKG Sinus rhythms and dysrhythmias: sinus rhythm Myocardial infarction: anterior [place] (acute or rec
--- NOTE | 2019-02-06 12:35 | Discharge Summary ---
Providers - Providers Date of Admission: 02/04/19 08:17 Date of discharge: 02/06/19 Attending physician: TJ CALLAWAY 02/04/19 Consult to Cardiac Rehabilitation [CONS] Routine Reason For Exam: post pci 02/04/19 09:18 Consult to Cardiology [CONS] Stat Consulting Provider: LUBNA LIRA Reason For Exam: acute coronary syndrome Primary care physician: MANUEL BABCOCK Hospitalization Reason for admission: chest pain/acute ST elevation [place] Condition: Stable Pertinent studies: Chest x-ray; pulmonary edema S/p LHC with PCI to LAD Echo: ejection fraction 35% Hospital course: 63yr old male patient with no significant past medical history except for ongoing tobacco use, does not follow any physician not on any medications Presented to the emergency room with the complaints of chest pain which started this morning around 5:00 while getting ready to go to work Chest pain is continuous squeezing to pressure type radiating to left side of the chest and left arm associated with mild shortness of breath and nausea. Upon arrival to the emergency room patient was found to be in hypertensive urgency with peak blood pressure of 181 /109, persistent chest pain , nitroglycerin drip initiated , received bolus of heparin. First set of cardiac enzymes negative EKG no acute ST-T changes, however second EKG findings consistent with ST elevations , cardiology evaluated, anterior STEMI ,code STEMI called and patient was taken for STAT Cardiac Cath, S/p LHC with PCI to LAD Patient was started on dual antiplatelet therapy, beta blockers, jailyn inhibitors, statins and nitrates Echo revealed ischemic cardiomyopathy with EF of 35%, started on diuretics Patient's symptoms significantly improved Today patient denies chest pain or shortness of breath Cleared by cardiology for discharge and follow-up Smoking cessation counseling done, stable at discharge Discharge diagnosis --Chest pain; acute STEMI S/p LHC with PCI to LAD Cont ASA, plavix, statin, coreg, lisinopril. diuretics Cardiology following --Ischemic cardiomyopathy; ejection fraction 35% Diuretics, beta blockers, his inhibitors, low sodium diet, fluid restriction --Acute SYSTOLIC congestive heart failure; ejection fraction 55% -- Possible acute diastolic congestive heart failure,Impaired Diastolic filling;on ECHO, --Rhabdomyolysis; CK levels trending down, gentle hydration Monitor renal function --Hyperglycemia; Accu-Chek sliding scale coverage and ADA diet hemoglobin A1c 6.9 --Ongoing tobacco use; smoking cessation counseling Advised nicotine patch as needed --Obesity; BMI 37.1; advised weight reduction and medically stable --DVT prophylaxis; Lovenox Patient stable at discharge Disposition: DC-01 TO HOME OR SELFCARE Time spent for discharge: 32 min Core Measure Documentation - Palliative Care Palliative Care/ Comfort Measures: Not Applicable - Core Measures Any of the following diagnoses?: acute DE - Acute DE Discharge Requirements Aspirin at discharge: Yes JAILYN/ARB for LVSD if EF <40%: Yes Beta nidhi at discharge: Yes Statin for LDL = or >100 mg/dl on DC: Yes Exam - Constitutional Vitals: Temp Pulse Resp BP Pulse Ox 98.8 F 78 18 103/55 94 02/06/19 07:30 02/06/19 08:06 02/06/19 07:30 02/06/19 07:30 02/06/19 07:30 General appearance: Present: no acute distress, well-nourished - EENT Eyes: Present: PERRL, EOM intact - Neck Neck: Present: supple, normal ROM - Respiratory Respiratory effort: normal Respiratory: bilateral: diminished, negative: rales, rhonchi, wheezing - Cardiovascular Rhythm: regular Heart Sounds: Present: S1 & S2 - Extremities Extremities: no ischemia, No edema - Abdominal General gastrointestinal: Present: soft, non-tender, non-distended, normal bowel sounds - Integumentary Integumentary: Present: clear, warm - Musculoskeletal Musculoskeletal: strength equal bilaterally - Psychiatric Psychiatric: appropriate mood/affect, cooperative - Neurologic Neurologic: CNII-XII intact, moves all extremities Plan Activity: no restrictions Diet: diabetic, other (cardiac diet) Special Instructions: smoking cessation Additional Instructions: If you have chest pain or shortness of breath, contact him to the emergency room. Advised diabetic diet, advised to see primary care physician for your medical needs in 3-5 days Follow up with: MANUEL BABCOCK MD [Primary Care Provider] - 3-5 Days LUBNA LIRA MD [Staff Physician] - 7 Days Forms: CardCat PCI D/C Instructions, Discharge Signature Page Prescriptions: Aspirin EC 81 mg PO QDAY #30 tablet. Carvedilol [Coreg] 6.25 mg PO BID #60 tablet glipiZIDE [Glucotrol] 5 mg PO BIDDIAB #60 tablet Nicotine [Habitrol] 14 mg TD QDAY #30 patch Furosemide [Lasix] 20 mg PO QDAY #30 tablet AtorvaSTATin [Lipitor] 80 mg PO QHS #30 tablet Nitroglycerin [Nitrostat] 0.4 mg SL .Q5MIN PRN #30 tablet PRN Reason: Chest Pain Clopidogrel [Plavix] 75 mg PO QDAY #30 tablet Lisinopril [Zestril TAB] 10 mg PO QDAY #30 tablet
[2019-02-06 13:25] VITALS: BP 109/60
== END 2019-02-06 15:30 | disposition home or self-care (01) | DRG 246 ==
LOC: ED 06:44 → 4A 08:17 → CC1 13:53 → 4A 02-05 12:41
PROVIDERS: ADMIT Internal Medicine; ATTEND Internal Medicine
PROC: 027035Z Dilation of Coronary Artery, One Artery with Two Drug-eluting Intraluminal Devices, Percutaneous Approach (ICD-10-PCS; principal; 2019-02-04)
PROC: 4A023N7 Measurement of Cardiac Sampling and Pressure, Left Heart, Percutaneous Approach (ICD-10-PCS; 2019-02-04)
PROC: B2111ZZ Fluoroscopy of Multiple Coronary Arteries using Low Osmolar Contrast (ICD-10-PCS; 2019-02-04)
PROC: B2151ZZ Fluoroscopy of Left Heart using Low Osmolar Contrast (ICD-10-PCS; 2019-02-04)
PROC: B240ZZ3 Ultrasonography of Single Coronary Artery, Intravascular (ICD-10-PCS; 2019-02-04)
DX: I21.09 ST elevation (STEMI) myocardial infarction involving other coronary artery of anterior wall (principal); I50.21 Acute systolic (congestive) heart failure; M62.82 Rhabdomyolysis; I16.0 Hypertensive urgency; F17.210 Nicotine dependence, cigarettes, uncomplicated; F10.10 Alcohol abuse, uncomplicated; E78.5 Hyperlipidemia, unspecified; I25.82 Chronic total occlusion of coronary artery; Y90.0 Blood alcohol level of less than 20 mg/100 ml; R73.9 Hyperglycemia, unspecified; E66.9 Obesity, unspecified; I25.5 Ischemic cardiomyopathy; I11.0 Hypertensive heart disease with heart failure; I25.10 Atherosclerotic heart disease of native coronary artery without angina pectoris; Z68.37 Body mass index [BMI] 37.0-37.9, adult; Z82.49 Family history of ischemic heart disease and other diseases of the circulatory system; Z71.6 Tobacco abuse counseling; Z85.820 Personal history of malignant melanoma of skin; Z95.1 Presence of aortocoronary bypass graft
CPT/HCPCS: 36415; 71045; 80048; 80053; 80061; 80307; 81001; 82550; 82553; 82962; 83036; 83880; 84484; 85025; 92941; 92978; 93005; 93010; 93306; 93458; 96365; 96366; 96372; G0378; A9270-GY; C1725; C1753; C1769; C1874; C1887; C1894; C9606; J0171; J0461; J1644; J1650; J1815; J1940; J2001; J2250; J2270; J2370; J2405; J3010; J7040; Q9967

== ENCOUNTER 2019-06-10 05:54 | Observation (INO) | payer OTHER ==
[2019-06-10] MEDS ORDERED: ECOTRIN PO ONE (06:22)
[2019-06-10 06:59] LABS: Basophils % (Auto) 0.6 % (0.0-1.8); Eosinophils # (Auto) 0.3 K/mm3 (0.0-0.4); Eosinophils % (Auto) 4.1 % (0.0-4.3); Hematocrit 41.4 % (35.5-45.6); Hemoglobin 14.4 gm/dl (11.8-15.2); Lymphocytes # (Auto) 2.6 K/mm3 (1.2-5.4); Lymphocytes % (Auto) 30.5 % (13.4-35.0); Mean Corpuscular HGB Conc 35 % (32-34); Mean Corpuscular Volume 99 fl (84-94); Monocytes # (Auto) 0.9 K/mm3 (0.0-0.8); Monocytes % (Auto) 10.2 % (0.0-7.3); Platelet Count 195 K/mm3 (140-440); Red Blood Count 4.21 M/mm3 (3.65-5.03); Red Cell Distribution Width 14.2 % (13.2-15.2)
[2019-06-10] MEDS ORDERED: NACL 0.9% 500 ML 500 ML IV SCH (07:00)
[2019-06-10] MEDS ORDERED: PLAVIX PO SCH (07:00)
[2019-06-10 07:09] LABS: INR 1.02 (0.87-1.13)
[2019-06-10 07:10] LABS: Partial Thromboplastin Time 29.7 Sec. (24.2-36.6)
[2019-06-10 07:46] LABS: Calcium 8.9 mg/dL (8.4-10.2)
[2019-06-10] MEDS ORDERED: VERSED ONE (08:20)
[2019-06-10] MEDS ORDERED: SUBLIMAZE ONE (08:20)
[2019-06-10] MEDS ORDERED: NITROGLYCERIN SYRINGE 3 ML ONE (08:21)
[2019-06-10] MEDS ORDERED: XYLOCAINE 2% INFILTRATI ONE (08:21)
[2019-06-10] MEDS ORDERED: CALAN ONE (08:21)
[2019-06-10] MEDS ORDERED: HEPARIN/NS 5000 UNIT/500ML(CATH LAB) 1,000 ML IR ONE (08:21)
[2019-06-10] MEDS: HEPARIN 10,000 UNITS/10 ML ONE ×3 (09:06→09:30)
[2019-06-10] MEDS ORDERED: PLAVIX ONE (09:54)
[2019-06-10] MEDS ORDERED: ALUM-MAG HYDROX-SIMETH 200-200-20MG/5ML ONE (09:55)
--- NOTE | 2019-06-10 10:28 | Cardiac Catherization Report ---
REFERRING PHYSICIAN: Andriy Figueroa MD, cardiac catheterization. INDICATION FOR PROCEDURE: The patient is a pleasant 64-year-old gentleman, who had an anterior STEMI on 02/04/2019, did okay, continued to have worsening chest pain, seen in the office. He ended up having an abnormal nuclear stress test with questionable ischemia, recurrent chest pain despite multiple antianginal medications. He is referred for left heart catheterization. Risks, benefits and potential alternatives explained at length prior to obtaining informed consent. PROCEDURE IN DETAIL: The patient was brought to the electronic lab technician in a postoperative state, prepped and draped in sterile fashion. Braeden's test in right hand was normal. Creatinine is noted to be mildly elevated. He was started on IV fluids. We minimized the contrast use as much as possible. A 6-Romanian sheath placed in the right radial artery via modified Seldinger technique. All exchanges performed to exchange a J-tip guidewire. JL3.5 catheter used to engage the left main. No dampening or ventricularization. Cineangiography performed in all projections. JR4 catheter used to cross the aortic valve under fluoroscopic guidance. Left ventriculography performed in 30 COOK and 30 DAVID projections via hand injections, catheter flushed. Manual pullback performed with continuous pressure monitoring. Catheter was used to engage the right coronary. No dampening or ventricularization. Cineangiography performed in all projections. DATA: Aortic pressure is 120/60, LV pressure is 120, LVP of 15 mmHg. Left ventriculography reveals preserved left ventricular function, estimated at 50-55%. No evidence of aortic stenosis. CORONARY ANATOMY: This is a codominant system. Right coronary is a small vessel, diffusely diseased throughout proximal to mid. This is not significantly changed from January, extensive left to right collaterals identified. Left main without significant disease, bifurcates in left anterior descending and left circumflex. The left main without significant disease. LAD is a moderate-sized vessel, courses anterior intergroove, wraps around the apex. Stent in the proximal and mid LAD are widely patent. Distal LAD with mild diffuse small vessel disease, but widely patent. Circumflex has a new lesion. There is an ulcerated partially thrombotic mid left circumflex at the bifurcation of an OM branch. ALVARO 2 flow also 80% stenosis higher up in the mid segment. These were certainly culprit lesions. Given his symptoms and findings, we decided to proceed with PCI. EBU 3.5 guide used to engage left main without difficulty. Heparin given. Abnormal ACT is confirmed. The patient reloaded with aspirin and Plavix. A [place] wire placed in the distal left circumflex without difficulty. Repeat dilation with 2.5 x 12 compliant balloon to 12 MARION for 30 seconds. Next, in the more distal mid LAD lesion, we placed a 2.75 x 18 Resolute [place] deployed at 12 MARION for 30 seconds excellent result. Next, we used a 2.75 x 15 stent in the higher mid left circumflex stenosis at 12 MARION for 30 seconds, excellent angiographic result. Next, intravascular ultrasound was performed, which reveals a well-opposed, well expanded stents. No complications, no dissection. Left main without significant disease. Proximal circumflex with mild concentric plaque, but no obstructive disease noted. Final angiogram reveals excellent result, ALVARO 3 flow, no complications. CONCLUSIONS: 1. Severe coronary artery disease. A. Left main without significant disease. B. Left anterior descending with patent stent, moderate diffuse nonobstructive disease in the distal left anterior descending. 2. Acute ulcerated and partially thrombotic mid circumflex stenoses, which are certainly culprit. A. Successful IVUS guided percutaneous coronary intervention with drug-eluting stent x 2 (Resolute 2.75 x 18, 2.75 x 15) with excellent final angiographic and ultrasonographic results. 3. Chronically diseased right coronary with extensive left to right collaterals, medical management. 4. Preserved left ventricular function, estimated at 50-55%. 5. No evidence of aortic stenosis. 6. Normal left ventricular end-diastolic pressure. At this point, the patient is known to have this is progressive pattern of disease. Aggressive primary and secondary prevention measures have been discussed. Continue aspirin, Plavix, beta blockade, high dose atorvastatin, lifestyle changes discussed. He is clinically stable, chest-pain free, standard radial care likely discharge in a.m. JOB# [id number] SBGera/ROSAS
[2019-06-10] MEDS ORDERED: NITROSTAT SL PRN (14:52)
[2019-06-10] MEDS: COREG PO SCH (22:36)
[2019-06-11 06:00] LABS: Creatine Kinase MB 2.5 ng/mL (0.0-4.0)
[2019-06-11 06:01] LABS: Calcium 8.6 mg/dL (8.4-10.2)
[2019-06-11 07:11] LABS: Hematocrit 39.1 % (35.5-45.6); Hemoglobin 13.5 gm/dl (11.8-15.2); Mean Corpuscular HGB Conc 35 % (32-34); Mean Corpuscular Volume 99 fl (84-94); Platelet Count 168 K/mm3 (140-440); Red Blood Count 3.97 M/mm3 (3.65-5.03)
--- NOTE | 2019-06-11 08:13 | XRay Report ---
CHEST 1 VIEW INDICATION: post pci. Recent coronary artery catheterization. COMPARISON: 02/05/2019 FINDINGS: Support devices: None. Heart: Within normal limits. Lungs/Pleura: No acute air space or interstitial disease. No pneumothorax. Additional findings: None. IMPRESSION: No acute findings. Signer Name: Robbie Rees Jr, MD Signed: 06/11/2019 8:08 AM Workstation Name: [id number]
[2019-06-11] MEDS: COREG PO SCH (09:46)
[2019-06-11] MEDS ORDERED: ZESTRIL PO SCH (10:00)
[2019-06-11] MEDS ORDERED: ASPIRIN PO SCH (10:00)
[2019-06-11] MEDS ORDERED: LASIX PO SCH (10:00)
[2019-06-11] MEDS ORDERED: KLOR-CON 8 PO SCH (10:00)
[2019-06-11] MEDS ORDERED: PLAVIX PO SCH (10:00)
[2019-06-11 10:05] LABS: Basophils % (Manual) 0 % (0.0-1.8); Total Cells Counted 100
[2019-06-11 10:06] LABS: Anisocytosis Few; Platelet Estimate Consistent w Auto; Poikilocytosis Few
[2019-06-11 12:02] VITALS: BP 108/68
--- NOTE | 2019-06-11 13:32 | Short Stay Summary ---
Short Stay Documentation Date of service: 06/11/19 - History H&P: obtained from office - Allergies and Medications Current Medications: Allergies No Known Allergies Allergy (Unverified 02/04/19 07:41) Home Medications Medication Instructions Recorded Confirmed Last Taken Type Aspirin EC [Halfprin EC] 81 mg PO QDAY #30 tablet. 02/06/19 06/10/19 06/09/19 Rx AtorvaSTATin [Lipitor] 80 mg PO QHS #30 tablet 02/06/19 06/10/19 06/09/19 Rx Carvedilol [Coreg] 6.25 mg PO BID #60 tablet 02/06/19 06/10/19 06/09/19 Rx Clopidogrel [Plavix] 75 mg PO QDAY #30 tablet 02/06/19 06/10/19 06/09/19 Rx Lisinopril [Zestril TAB] 10 mg PO QDAY #30 tablet 02/06/19 06/10/19 06/09/19 Rx Nitroglycerin [Nitrostat] 0.4 mg SL .Q5MIN PRN #30 tablet 02/06/19 06/10/19 Unknown Rx Cilostazol [Pletal] 50 mg PO DAILY 06/10/19 06/10/19 06/09/19 History Furosemide [Lasix] 40 mg PO QDAY 06/10/19 06/10/19 06/09/19 History Potassium Chloride [Klor-Con 8] 8 meq PO QDAY 06/10/19 06/10/19 06/09/19 History glipiZIDE [Glucotrol] 5 mg PO DAILY 06/10/19 06/10/19 06/09/19 History Active Medications Aspirin (Aspirin) 325 mg PO QDAY [facility] Last Admin: 06/11/19 09:47 Dose: 325 mg Documented by: Atorvastatin Calcium (Lipitor) 80 mg PO QHS [facility] Last Admin: 06/10/19 22:36 Dose: 80 mg Documented by: Carvedilol (Coreg) 6.25 mg PO BID [facility] Last Admin: 06/11/19 09:46 Dose: 6.25 mg Documented by: Clopidogrel Bisulfate (Plavix) 75 mg PO QDAY [facility] Last Admin: 06/11/19 09:47 Dose: 75 mg Documented by: Furosemide (Lasix) 40 mg PO QDAY [facility] Last Admin: 06/11/19 09:46 Dose: 40 mg Documented by: Lisinopril (Zestril) 10 mg PO QDAY [facility] Last Admin: 06/11/19 09:48 Dose: Not Given Documented by: Nitroglycerin (Nitrostat) 0.4 mg SL .Q5MIN PRN PRN Reason: Chest Pain Potassium Chloride (Klor-Con 8) 8 meq PO QDAY [facility] Last Admin: 06/11/19 09:47 Dose: 8 meq Documented by: - Physical exam General appearance: no acute distress Integumentary: no rash, no growths, no abnormal pigmentation HEENT: Atraumatic, PERRLA Lungs: Clear to auscultation Heart: Regular rate, Normal S1, Normal S2 Gastrointestinal: normal, normoactive bowel sounds Extremities: no ischemia, pulses intact, pulses symmetrical Neurological: Normal gait, Normal speech, Strength at 5/5 X4 ext - Brief post op/procedure progress note Date of procedure: 06/10/19 Pre-op diagnosis: CAD Post-op diagnosis: same Procedure: LHC with PCI - see dictated cath report Anesthesia: local Estimated blood loss: none Condition: stable - Disposition Condition at discharge: Good Disposition: [id number] TO HOME OR SELFCARE - Discharge Diagnoses (1) CAD (coronary artery disease) Status: Chronic (2) Stented coronary artery Status: Chronic (3) HTN (hypertension) Status: Chronic (4) Dyslipidemia Status: Chronic (5) Cardiomyopathy Status: Chronic (6) Former tobacco use Status: Chronic Short Stay Discharge Plan Activity: advance as tolerated Diet: low fat, low cholesterol, low salt Wound: open to air, keep clean and dry, per your surgeon's advice Follow up with: RANJITH FARRAR MD [Other] - 7 Days LUBNA LIRA MD [Staff Physician] - 7 Days ([facility], 06/25/2019 @ 3:00PM)
== END 2019-06-11 15:11 | disposition home or self-care (01) ==
LOC: CATHLABREC 05:54 → 4A 11:18
PROVIDERS: ADMIT Internal Medicine; ATTEND Internal Medicine
DX: I25.10 Atherosclerotic heart disease of native coronary artery without angina pectoris (principal); I11.0 Hypertensive heart disease with heart failure; I50.22 Chronic systolic (congestive) heart failure; E78.5 Hyperlipidemia, unspecified; I25.2 Old myocardial infarction; I42.9 Cardiomyopathy, unspecified; Z95.1 Presence of aortocoronary bypass graft; Z87.891 Personal history of nicotine dependence
CPT/HCPCS: 36415; 71045; 80048; 82550; 82553; 82962; 84484; 85007; 85025; 85347; 85610; 85730; 92978; 93005; 93010; 93458; A9270; C1725; C1753; C1769; C1874; C1887; C1894; C9600; G0378; J1644; J2250; J3010; J7040; 92928; Q9967